=== PATIENT | female | born 1970 | race Caucasian/White ===

== ENCOUNTER → 2016-08-11 | Outpatient (CLI) | payer MEDICARE, MEDICAID ==
--- NOTE | 2016-08-11 10:53 | WOMENS IMAGING REPORT ---
EXAM DESCRIPTION: BILAT SCREENING MAMMO W/CAD COMPLETED DATE/TIME: 08/11/2016 10:43 am REASON FOR STUDY: Z12.31, ROUTINE SCREENING MAMMO Z12.31 ENCNTR SCREEN MAMMOGRAM FOR MALIGNANT NEOP LASM OF JOSE COMPARISON: None. TECHNIQUE: Standard craniocaudal and mediolateral oblique views of each breast recorded using [employer] l acquisition. LIMITATIONS: None. FINDINGS: No masses, calcifications or architectural distortion. No areas of suspicion. Read with the assistance of CAD. .[facility] - R2 Cenova Version 1.3 .[facility] - R2 Cenova Version 1.3 .[facility] - R2 Cenova Version 2.4 .[facility] [place] R2 Cenova Version 2.4 .[facility] - R2 Manager Material Version 9.2 IMPRESSION: NORMAL MAMMOGRAM. BIRADS 1. BREAST DENSITY: b. There are scattered areas of fibroglandular density. BIRAD: 1 NEGATIVE RECOMMENDATION: ROUTINE SCREENING COMMENT: The patient has been notified of the results by letter per MQSA requirements. Additional no tification policies are in place for contacting patient with suspicious or incomplete findings. Quality ID #[id number]: The [employer] recommends an annual screening mammogram for women aged 40 years or over. This facility utilizes a reminder system to ensure that all patients receive reminder letters, and/or direct phone calls for appointments. This includes reminders for routine scr eening mammograms, diagnostic mammograms, or other Breast Imaging Interventions when appropriate. Th is patient will be placed in the appropriate reminder system. The [employer] (ACR) has developed recommendations for screening MRI of the breast s in certain patient populations, to be used in conjunction with mammography. Breast MRI surveillanc e may be appropriate for women with more than 20% lifetime risk of developing breast cancer as deter mined by genetic testing, significant family history of the disease, or history of mantle radiation f or Hodgkins Disease. ACR Practice Guidelines 2008. TECHNICAL DOCUMENTATION: FINDING NUMBER: (1) ASSESSMENT: (1) JOB ID: [id number] [employer]- All Rights Reserved
== END ==
LOC: WI 09:10
PROVIDERS: ATTEND Internal Medicine
DX: Z12.31 Encounter for screening mammogram for malignant neoplasm of breast (principal)
CPT/HCPCS: 77067; G0202

== ENCOUNTER 2018-07-13 17:11 | Inpatient (IN) | payer MEDICARE, MEDICAID ==
[2018-07-13] MEDS ORDERED: DEXTROSE 50%-WATER SYRINGE 12.5 GM/25 ML DOSE IV PRN (18:30)
[2018-07-13] MEDS ORDERED: DEXTROSE 40% GEL 15 GM TUBE PO PRN (18:30)
[2018-07-13] MEDS ORDERED: GLUCAGON,HUMAN RECOMB 1 MG INJ IM PRN (18:30)
[2018-07-13] MEDS ORDERED: DEXTROSE 40% GEL 15 GM TUBE X 2 PO PRN (18:30)
[2018-07-13] MEDS ORDERED: DEXTROSE 50%-WATER SYRINGE 25 GM/50 ML DOSE IV PRN (18:30)
[2018-07-13] MEDS ORDERED: CYANOCOBALAMIN (VITAMIN B-12) INJ 1000 MCG/1 ML VIAL IM ONE (19:00)
[2018-07-13 19:32] LABS: ABSOLUTE BASOPHILS # (AUTO) 0.1 10^3/uL (0.0-0.2); ABSOLUTE EOSINOPHILS # (AUTO) 0.2 10^3/uL (0.0-0.6); ABSOLUTE LYMPHOCYTES (AUTO) 3.4 10^3/uL (0.5-4.7); ABSOLUTE MONOCYTES (AUTO) 0.6 10^3/uL (0.1-1.4); ABSOLUTE NEUT (AUTO) 4.9 10^3/uL (1.7-8.2); BASOPHILS % (AUTO) 0.6 % (0-2); EOSINOPHILS % (AUTO) 1.7 % (0-6); LYMPHOCYTES % (AUTO) 37.6 % (13-45); MEAN CORPUSCULAR HEMOGLOBIN 16.5 pg (27.0-33.4); MEAN CORPUSCULAR HGB CONC 27.2 g/dL (32.0-36.0); MONOCYTES % (AUTO) 6.2 % (3-13); PLATELET COUNT 292 10^3/uL (150-450); RED BLOOD COUNT 4.26 10^6/uL (3.72-5.28); RED CELL DISTRIBUTION WIDTH 19.8 % (11.5-14.0); SEGMENTED NEUTROPHILS % (AUTO) 53.9 % (42-78); TOTAL CELLS COUNTED % (AUTO) 100 %; WHITE BLOOD COUNT 9.1 10^3/uL (4.0-10.5)
[2018-07-13 19:42] LABS: ALANINE AMINOTRANSFERASE 12 U/L (9-52); ALBUMIN 3.7 g/dL (3.5-5.0); ALKALINE PHOSPHATASE 60 U/L (38-126); ANION GAP 10 (5-19); ASPARTATE AMINO TRANSFERASE 18 U/L (14-36); BILIRUBIN,DIRECT 0.1 mg/dL (0.0-0.4); BLOOD UREA NITROGEN 15 mg/dL (7-20); CALCIUM 9.2 mg/dL (8.4-10.2); CARBON DIOXIDE 30 mmol/L (22-30); CHLORIDE 101 mmol/L (98-107); IRON(TIBC) 20.4 ug/dL (37-170); POTASSIUM 4.8 mmol/L (3.6-5.0); SODIUM 140.7 mmol/L (137-145)
[2018-07-13 20:11] LABS: ANISOCYTOSIS 2+; HYPOCHROMASIA 2+; OVALOCYTES 2+; PLATELET COMMENT ADEQUATE; POLYCHROMASIA SLIGHT; TARGET CELLS 1+
[2018-07-13 20:16] LABS: MEAN CORPUSCULAR VOLUME 61 fl (80-97)
[2018-07-13] MEDS ORDERED: FAMOTIDINE 20 MG TABLET PO PRN (20:17)
[2018-07-13] MEDS ORDERED: FUROSEMIDE 40 MG TABLET PO PRN (20:17)
[2018-07-13 20:19] LABS: FERRITIN 3.77 ng/mL (6.2-137.0)
[2018-07-13 20:21] LABS: GLUCOSE 59 mg/dL (75-110); HEMOGLOBIN 7.1 g/dL (12.0-15.5)
--- NOTE | 2018-07-13 20:27 | PDOC H&P ---
History of Present Illness Admission Date/PCP: 07/13/18 17:11 AMARI MACHADO MD History of Present Illness: CIARA BRADY is a 48 year old female, She has history of type 2 diabetes mellitus she was admitted directly from the office today because of severe iron deficiency anemia, she had routine blood work when she came for follow-up evaluation she was found to be severely anemic, anemia work-up was done in the office it demonstrated severe iron deficiency anemia with B12 deficiency, She has a history of sleeve gastrectomy, she denies any passage of black tarry stool, she denies menorrhagia or excessive menstrual blood loss, she may need GI endoscopy including EGD and colonoscopy. She was admitted because she was symptomatic with shortness of breath severe fatigue ,lack of energy Past Medical History Cardiac Medical History: Reports: Hyperlipidema, Hypertension Pulmonary Medical History: Reports: Bronchitis, Pneumonia Endocrine Medical History: Reports: Diabetes Mellitus Type 2, Obesity Past Surgical History Past Surgical History: Reports: Cholecystectomy - 1999 Social History Smoking Status: Never Smoker Frequency of Alcohol Use: None Hx Recreational Drug Use: No Drugs: None Hx Prescription Drug Abuse: No Family History Parental Family History Reviewed: Yes Children Family History Reviewed: Yes Sibling(s) Family History Reviewed.: Yes Medication/Allergy Home Medications: Insulin Glargine,Hum.rec.anlog [Lantus] 80 unit SQ QAM 08/18/11 Losartan Potassium [Cozaar 100 mg Tablet] 100 mg PO DAILY 08/18/11 Aspirin [Ecotrin 81 mg EC Tablet] 81 mg PO DAILY 07/13/18 Calcium Carbonate/Vitamin D3 [Caltrate 600 + D Tablet] 1 tab PO DAILY 07/13/18 Citalopram Hydrobromide [Celexa 20 mg Tablet] 20 mg PO DAILY 07/13/18 Dapagliflozin Propanediol [Farxiga] 10 mg PO DAILY 07/13/18 Diltiazem HCl [Cardizem 60 mg Tablet] 60 mg PO Q12 07/13/18 Exenatide Microspheres [Bydureon Pen] 2 mg SQ WE@1000 MDD FILLED 03/09/18 FOR 28DAYSUPPLY 07/13/18 Famotidine [Pepcid 20 mg Tablet] 20 mg PO DAILYP PRN 07/13/18 Furosemide [Lasix 40 mg Tablet] 40 mg PO QAMP PRN 07/13/18 Gabapentin [Neurontin] 300 mg PO Q8 MDD FILLED 03/09/18 FOR 30DAYSUPPLY 07/13/18 Metformin HCl [Glucophage 500 mg Tablet] 1,000 mg PO BIDACBS 07/13/18 Multivit-Minerals/Folic Acid [Centrum Vitamints Chew Tab] 200 mcg PO DAILY 07/13/18 Allergies/Adverse Reactions: No Known Allergies Allergy (Unverified 08/18/11 20:12) Review of Systems Constitutional: ABSENT: chills, fever(s), headache(s), weight gain, weight loss Eyes: ABSENT: visual disturbances Ears: ABSENT: hearing changes Cardiovascular: PRESENT: chest pain, dyspnea on exertion Respiratory: ABSENT: cough, hemoptysis Gastrointestinal: ABSENT: abdominal pain, constipation, diarrhea, hematemesis, hematochezia, nausea, vomiting Genitourinary: ABSENT: dysuria, hematuria Musculoskeletal: ABSENT: joint swelling Integumentary: ABSENT: rash, wounds Neurological: ABSENT: abnormal gait, abnormal speech, confusion, dizziness, focal weakness, syncope Psychiatric: ABSENT: anxiety, depression, homidical ideation, suicidal ideation Endocrine: ABSENT: cold intolerance, heat intolerance, menstrual abnormalities, polydipsia, polyuria Hematologic/Lymphatic: ABSENT: easy bleeding, easy bruising, lymphadenopathy Physical Exam Vital Signs: Temp Pulse Resp BP Pulse Ox 97.5 F 93 16 134/51 H 98 07/13/18 19:42 07/13/18 19:42 07/13/18 19:42 07/13/18 19:42 07/13/18 19:42 Intake & Output 07/12/18 07/13/18 07/14/18 06:59 06:59 06:59 Weight 103 kg General appearance: PRESENT: no acute distress, well-developed, well-nourished Head exam: PRESENT: atraumatic, normocephalic Eye exam: PRESENT: conjunctiva pale Ear exam: PRESENT: normal external ear exam Mouth exam: PRESENT: moist, tongue midline Neck exam: PRESENT: full ROM Respiratory exam: PRESENT: clear to auscultation tawanna Cardiovascular exam: PRESENT: RRR, +S1, +S2 Vascular exam: PRESENT: normal capillary refill GI/Abdominal exam: PRESENT: normal bowel sounds, soft Rectal exam: PRESENT: deferred Neurological exam: PRESENT: alert, awake, oriented to person, oriented to place, oriented to time, oriented to situation, CN II-XII grossly intact Psychiatric exam: PRESENT: appropriate affect, normal mood Skin exam: PRESENT: dry, intact, warm Results Laboratory Results: 07/13/18 18:48 07/13/18 18:48 WBC 9.1 RBC 4.26 Hgb 7.1 L Hct 26.0 L MCV 61 L MCH 16.5 L MCHC 27.2 L RDW 19.8 H Plt Count 292 Seg Neutrophils % 53.9 Lymphocytes % 37.6 Monocytes % 6.2 Eosinophils % 1.7 Basophils % 0.6 Absolute Neutrophils 4.9 Absolute Lymphocytes 3.4 Absolute Monocytes 0.6 Absolute Eosinophils 0.2 Absolute Basophils 0.1 Assessment & Plan - Diagnosis (1) Iron deficiency anemia due to chronic blood loss Is this a current diagnosis for this admission?: Yes Plan: Transfuse packed red blood cells, Consult surgery for GI endoscopy (2) Vitamin B12 deficiency Is this a current diagnosis for this admission?: Yes (3) T2DM (type 2 diabetes mellitus) Qualifiers: Diabetes mellitus long term care pharmacist insulin use: with long term care pharmacist use Diabetes mellitus complication status: with neurologic complications Diabetes mellitus complication detail: with polyneuropathy Qualified Code(s): E11.42 - Type 2 diabetes mellitus with diabetic polyneuropathy; Z79.4 - USP (current) use of insulin Is this a current diagnosis for this admission?: Yes
[2018-07-13] MEDS: DILTIAZEM HCL 60 MG TABLET PO SCH (21:57)
[2018-07-13] MEDS: GABAPENTIN 300 MG CAPSULE PO SCH (21:57)
[2018-07-13] MEDS: INSULIN LISPRO 100 UNIT/ML 3 ML VIAL SUBCUT SCH (21:57)
[2018-07-13] MEDS ORDERED: (PENDING PHARMACY ID) (Gabapentin [Neurontin] 300 MG) PO SCH (22:00)
[2018-07-14] MEDS: GABAPENTIN 300 MG CAPSULE PO SCH ×3 (06:43→21:32)
[2018-07-14 07:30] LABS: HEMATOCRIT 30.6 % (36.0-47.0); MEAN CORPUSCULAR HEMOGLOBIN 19.1 pg (27.0-33.4); MEAN CORPUSCULAR HGB CONC 29.5 g/dL (32.0-36.0); PLATELET COUNT 262 10^3/uL (150-450); RED BLOOD COUNT 4.73 10^6/uL (3.72-5.28); RED CELL DISTRIBUTION WIDTH 24.7 % (11.5-14.0); WHITE BLOOD COUNT 8.1 10^3/uL (4.0-10.5)
[2018-07-14 07:54] LABS: MEAN CORPUSCULAR VOLUME 65 fl (80-97)
[2018-07-14] MEDS: INSULIN LISPRO 100 UNIT/ML 3 ML VIAL SUBCUT SCH ×4 (08:10→22:25)
[2018-07-14] MEDS: LOSARTAN POTASSIUM 50 MG TABLET PO SCH (09:33)
[2018-07-14] MEDS: ASPIRIN 81 MG TABLET, ENT COATED PO SCH (09:33)
[2018-07-14] MEDS: METFORMIN HCL 500 MG TABLET PO SCH ×2 (09:34→16:34)
[2018-07-14] MEDS: DILTIAZEM HCL 60 MG TABLET PO SCH ×2 (09:34→21:32)
[2018-07-14] MEDS: CITALOPRAM HYDROBROMIDE 20 MG TABLET PO SCH (09:34)
[2018-07-14] MEDS: MULTIVITAMINS W-IRON TABLET, CHEWABLE PO SCH (09:34)
[2018-07-14] MEDS: CALCIUM CARBONATE 250 MG/VITAMIN D3 125 UNIT TABLET PO SCH (09:34)
[2018-07-14] MEDS: INSULIN GLARGINE,HUM.REC.ANLOG 1,000 UNIT/10 ML VIAL SUBCUT SCH (09:35)
[2018-07-14] MEDS ORDERED: FOLIC ACID PO SCH (10:00)
[2018-07-14] MEDS ORDERED: (PENDING PHARMACY ID) (Dapagliflozin Propanediol [Farxiga] 10 MG) PO SCH (10:00)
[2018-07-14] MEDS ORDERED: MULTIVIT MINERALS PO SCH (10:00)
[2018-07-14] MEDS ORDERED: [UNRECOGNIZED DRUG - OTHER] PO SCH (10:00)
[2018-07-14] MEDS ORDERED: PEG 3350/NA SULF,BICARB,CL/KCL 4000 ML PO ONE (14:30)
--- NOTE | 2018-07-14 16:46 | PDOC PROGRESS REPORT ---
Subjective Progress Note for:: 07/14/18 Subjective:: Patient denied any significant abdominal pain. She admitted to daily use of Ibuprofen 400 mg for her neck pain. she denied tarry or black stool. No nausea or vomiting. No chest pain or difficulty with breathing. On going ingestion of Golytely in preparation for Colonoscopy. Reason For Visit: SEVERE ANEMIA, B12 DEFICIENCY Physical Exam Vital Signs: Temp Pulse Resp BP Pulse Ox 97.9 F 80 16 162/69 H 97 07/14/18 11:50 07/14/18 13:49 07/14/18 11:50 07/14/18 11:50 07/14/18 11:50 Intake & Output 07/13/18 07/14/18 07/15/18 06:59 06:59 06:59 Intake Total 1500 826 Balance 1500 826 Weight 105.2 kg General appearance: PRESENT: no acute distress, obese Head exam: PRESENT: atraumatic, normocephalic Eye exam: PRESENT: conjunctiva pink, EOMI, PERRLA. ABSENT: scleral icterus Ear exam: PRESENT: normal external ear exam Mouth exam: PRESENT: moist Respiratory exam: PRESENT: clear to auscultation tawanna Cardiovascular exam: PRESENT: RRR. ABSENT: diastolic murmur, rubs, systolic murmur Vascular exam: ABSENT: pallor GI/Abdominal exam: PRESENT: normal bowel sounds, soft. ABSENT: distended, guarding, mass, organolmegaly, rebound, tenderness Rectal exam: PRESENT: deferred Musculoskeletal exam: PRESENT: normal inspection Neurological exam: PRESENT: alert, awake, oriented to person, oriented to place, oriented to time, oriented to situation, CN II-XII grossly intact. ABSENT: motor sensory deficit Psychiatric exam: PRESENT: appropriate affect, normal mood. ABSENT: homicidal ideation, suicidal ideation Skin exam: PRESENT: dry, warm Results Laboratory Results: 07/14/18 06:59 07/13/18 18:48 07/13/18 07/13/18 07/13/18 18:48 18:48 18:48 WBC 9.1 RBC 4.26 Hgb 7.1 L Hct 26.0 L MCV 61 L MCH 16.5 L MCHC 27.2 L RDW 19.8 H Plt Count 292 Seg Neutrophils % 53.9 Lymphocytes % 37.6 Monocytes % 6.2 Eosinophils % 1.7 Basophils % 0.6 Absolute Neutrophils 4.9 Absolute Lymphocytes 3.4 Absolute Monocytes 0.6 Absolute Eosinophils 0.2 Absolute Basophils 0.1 Sodium 140.7 Potassium 4.8 Chloride 101 Carbon Dioxide 30 Anion Gap 10 BUN 15 Creatinine 0.75 Est GFR ( Amer) > 60 Est GFR (Non-Af Amer) > 60 Glucose 59 L Calcium 9.2 Iron 20.4 L TIBC 470 H % Saturation 4 Ferritin 3.77 L Total Bilirubin 1.0 AST 18 ALT 12 Alkaline Phosphatase 60 Total Protein 7.0 Albumin 3.7 Blood Type O POSITIVE Antibody Screen NEGATIVE 07/14/18 06:59 WBC 8.1 RBC 4.73 Hgb 9.0 L Hct 30.6 L MCV 65 L D MCH 19.1 L MCHC 29.5 L RDW 24.7 H Plt Count 262 Seg Neutrophils % Lymphocytes % Monocytes % Eosinophils % Basophils % Absolute Neutrophils Absolute Lymphocytes Absolute Monocytes Absolute Eosinophils Absolute Basophils Sodium Potassium Chloride Carbon Dioxide Anion Gap BUN Creatinine Est GFR ( Amer) Est GFR (Non-Af Amer) Glucose Calcium Iron TIBC % Saturation Ferritin Total Bilirubin AST ALT Alkaline Phosphatase Total Protein Albumin Blood Type Antibody Screen Assessment & Plan - Diagnosis (1) Iron deficiency anemia due to chronic blood loss Is this a current diagnosis for this admission?: Yes (2) T2DM (type 2 diabetes mellitus) Qualifiers: Diabetes mellitus moth exterminator insulin use: with moth exterminator use Diabetes mellitus complication status: with neurologic complications Diabetes mellitus complication detail: with polyneuropathy Qualified Code(s): E11.42 - Type 2 diabetes mellitus with diabetic polyneuropathy; Z79.4 - termite treater (current) use of insulin Is this a current diagnosis for this admission?: Yes (3) Vitamin B12 deficiency Is this a current diagnosis for this admission?: Yes - Time Time Spent with patient: 25-34 minutes Medications reviewed and adjusted accordingly: Yes Anticipated discharge: Home Within: Other - Inpatient Certification Based on my medical assessment, after consideration of the patient's comorbidities, presenting symptoms, or acuity I expect that the services needed warrant INPATIENT care.: Yes I certify that my determination is in accordance with my understanding of Medicare's requirements for reasonable and necessary INPATIENT services [42 CFR 412.3e].: Yes Medical Necessity: Significant Comorbidiites Make Outpatient Treatment Too Risky, Need Close Monitoring Due to Risk of Patient Decompensation, Need For Continuous Telemetry Monitoring, Risk of Complication if Not Cared For in Hospital, Risk of Diagnosis Which Will Require Inpatient Eval/Care/Monitoring Post Hospital Care: D/C Human Relations Teacher Documentation - Plan Summary Plan Summary: Continue current medication management and preparation for colonoscopy. She will need EGD as well as capsule endoscopy if no site of bleed or associated pathology is found on her colonoscopy.
[2018-07-15] MEDS: GABAPENTIN 300 MG CAPSULE PO SCH ×3 (05:11→21:26)
[2018-07-15] MEDS ORDERED: PEG 3350/NA SULF,BICARB,CL/KCL 4000 ML PO ONE (07:30)
[2018-07-15] MEDS ORDERED: NORMAL SALINE 1000 ML 1,000 ML IV PRN ×3 (07:30→18:15)
[2018-07-15] MEDS: INSULIN GLARGINE,HUM.REC.ANLOG 1,000 UNIT/10 ML VIAL SUBCUT SCH (08:36)
[2018-07-15] MEDS: METFORMIN HCL 500 MG TABLET PO SCH ×2 (08:36→17:27)
[2018-07-15] MEDS: INSULIN LISPRO 100 UNIT/ML 3 ML VIAL SUBCUT SCH ×4 (08:36→21:26)
[2018-07-15] MEDS: LOSARTAN POTASSIUM 50 MG TABLET PO SCH (09:00)
[2018-07-15] MEDS: CALCIUM CARBONATE 250 MG/VITAMIN D3 125 UNIT TABLET PO SCH (09:00)
[2018-07-15] MEDS: ASPIRIN 81 MG TABLET, ENT COATED PO SCH (09:01)
[2018-07-15] MEDS: MULTIVITAMINS W-IRON TABLET, CHEWABLE PO SCH (09:01)
[2018-07-15] MEDS: CITALOPRAM HYDROBROMIDE 20 MG TABLET PO SCH (09:01)
[2018-07-15] MEDS: DILTIAZEM HCL 60 MG TABLET PO SCH ×2 (09:01→21:26)
[2018-07-15] MEDS ORDERED: DEXTROSE 5%-NORMAL SALINE 1,000 ML IV PRN (09:14)
--- NOTE | 2018-07-15 09:23 | RADIOLOGY REPORT (SQ) ---
EXAM DESCRIPTION: ABDOMEN 2 VIEWS COMPLETED DATE/TIME: 07/15/2018 8:53 am REASON FOR STUDY: unsuccessful bowel prep COMPARISON: None. NUMBER OF VIEWS: Two views. TECHNIQUE: Supine and upright radiographic images of the abdomen acquired. LIMITATIONS: None. FINDINGS: FREE AIR: None. No abnormal gas collections. LUNG BASES: Clear. BOWEL GAS PATTERN: There are air-fluid levels throughout the colon and small bowel. Small amount of stool in the right lower quadrant. CALCIFICATIONS: No suspicious calcifications. SOFT TISSUES: No gross mass or suggestion of organomegaly. HARDWARE: Surgical clips in the upper abdomen post gastric bypass and cholecystectomy BONES: No acute fracture. No worrisome bone lesions. OTHER: No other significant finding. IMPRESSION: Air-fluid levels in small bowel and colon, abnormal but nonspecific. Surgical clips at the GE junction likely post gastric bypass TECHNICAL DOCUMENTATION: JOB ID: [id number] [employer]- All Rights Reserved Reading location - IP/workstation name: [email or web address]
--- NOTE | 2018-07-15 10:58 | PDOC PROGRESS REPORT ---
Subjective Progress Note for:: 07/15/18 Subjective:: Patient has had 6 L of PEG solution without a bowel movement. She reports a history of constipation. Reason For Visit: SEVERE ANEMIA, B12 DEFICIENCY Physical Exam Vital Signs: Temp Pulse Resp BP Pulse Ox 97.8 F 77 16 163/69 H 97 07/15/18 07:28 07/15/18 07:28 07/15/18 07:28 07/15/18 07:28 07/15/18 07:28 Intake & Output 07/14/18 07/15/18 07/16/18 06:59 06:59 06:59 Intake Total 1500 3416 Output Total 0 Balance 1500 3416 Weight 105.2 kg 108.6 kg General appearance: PRESENT: no acute distress Rectal exam: PRESENT: other - Patient examined left lateral decubitus position. Rectal exam performed. External hemorrhoids, collapsed. The rectal vault is full of very dry hard stool. Some stool was manually disimpacted Results Laboratory Results: 07/14/18 06:59 07/13/18 18:48 Impressions: Abdomen X-Ray 07/15/18 07:38 IMPRESSION: Air-fluid levels in small bowel and colon, abnormal but nonspecific. Surgical clips at the GE junction likely post gastric bypass Assessment & Plan - Diagnosis (1) Constipation Is this a current diagnosis for this admission?: Yes Plan: Impression: Severe constipation in the anal rectal vault preventing effective catharsis for upper and lower endoscopy today; abdominal film early today showed scattered air fluid levels throughout the colon, minimal air in the small bowel. Plan: 1. We will get patient ambulating now 2. If no results, will perform soapsuds enema. (2) Iron deficiency anemia due to chronic blood loss Is this a current diagnosis for this admission?: Yes
[2018-07-15] MEDS ORDERED: FENTANYL CITRATE INJ/PF 100 MCG/2 ML AMPUL ONE (12:28)
[2018-07-15] MEDS ORDERED: DIPHENHYDRAMINE HCL 50 MG/ML VIAL ONE (12:28)
[2018-07-15] MEDS ORDERED: ONDANSETRON HCL INJ/PF 4 MG/2 ML SDV ONE (12:28)
[2018-07-15] MEDS ORDERED: EPINEPHRINE INJ 1 MG/10 ML DISP.SYRIN ONE (12:29)
[2018-07-15] MEDS ORDERED: GLUCAGON,HUMAN RECOMB 1 MG INJ ONE (12:29)
[2018-07-15] MEDS ORDERED: NALOXONE HCL INJ/PF 0.4 MG/1 ML SDV ONE (12:29)
[2018-07-15] MEDS ORDERED: FLUMAZENIL INJ 0.5 MG/5 ML VIAL ONE (12:29)
[2018-07-15] MEDS: MIDAZOLAM 2 MG/2 ML INJ ONE ×3 (15:42→16:10)
--- NOTE | 2018-07-15 16:48 | Operative Report ---
Operative Report DATE OF SURGERY: 07/15/18 PREOPERATIVE DIAGNOSIS: 1. Blood loss anemia. 2. History of gastric sleeve b ariatric operation POSTOPERATIVE DIAGNOSIS: Same with intact sleeve; mild gastritis, chronic; external hemorrhoids; suboptimal bowel prep OPERATION: 1. Esophagogastroduodenoscopy. 2. Gastric sleeve mucosal biopsies. 3. Total colonoscopy to cecum. SURGEON: SABA STEWART ANESTHESIA: Moderate Sedation TISSUE REMOVED OR ALTERED: Mucosal biopsy of gastric sleeve COMPLICATIONS: None ESTIMATED BLOOD LOSS: Scant INTRAOPERATIVE FINDINGS: See below PROCEDURE: The patient was taken to the third floor to the endoscopy suite on the fifth floor where conscious sedation was induced. She is placed in a semirecumbent left lateral decubitus position. Surgical plan and surgical timeout were conducted. The flexible adult upper endoscope was advanced to the oropharynx, through the esophagus with the Z line at approximately 40 cm from the incisor. The scope was advanced through the stomach which was consistent with a restrictive procedure such as a gastric sleeve. The tubular stomach stomach was traversed and then the pylorus entered. The first and second portion of the duodenum were visualized and there were no scope was brought back to the pylorus, and the g astric sleeve examined carefully. There were changes consistent with chronic gastritis. A biopsy was performed to the mucosa and sent to pathology. There was no evidence of active bleeding. No evidence of tumor stricture or any other pathology. The scope was brought back through the esophagus and again no significant pathology other than mild distal gastritis identified. There is no explanation for GI bleeding. The scope was withdrawn for patient oropharynx. We now set up for colonoscopy The patient was placed in the left lateral decubitus position with knees to chest. A perianal examination was performed. There was no visible or palpable anorectal pathology. Sphincter tone was felt to be normal. There was an external, edematous hemorrhoid. The flexible adult colonoscope was advanced through the anal rectal canal, all the way to the cecum. Visualization of the cecum was achieved and the ileocecal valve, and transillumination of the anterior abdominal wall. This was a poor study because of the nearly 3 L of thick yellow stool aspirated from the entire colon; therefore real possibility is that small lesions may have been missed during the procedure. The colonoscope was withdrawn slowly and methodically checked and the mucosa carefully. There was no evidence of tumor, stricture, bleeding or polyp. There was no evidence of diverticuloses. The scope was slowly withdrawn through the anal rectal canal. Complete visualization of the rectum was achieved with photodocumentation. The scope was withdrawn to the patient's anus. The patient tolerated the proc edure well and was taken to the recovery area in stable condition. Surveillance colonoscopy 5 to 7 years; source of GI bleeding not identified on this upper and lower endoscopic procedure. Reconsult surgery if clinically indicated
--- NOTE | 2018-07-15 18:47 | PDOC PROGRESS REPORT ---
Subjective Progress Note for:: 07/15/18 Subjective:: Patient had EGD and colonoscopy evaluation earlier today that revealed sleeve edge gastritis without any other significant pathology to explain her anemia. No abdominal pain, nausea, or vomiting. No chest pain or difficulty with breathing. Reason For Visit: SEVERE ANEMIA, B12 DEFICIENCY Physical Exam Vital Signs: Temp Pulse Resp BP Pulse Ox 97.8 F 64 16 138/79 H 98 07/15/18 18:00 07/15/18 18:00 07/15/18 18:00 07/15/18 18:00 07/15/18 18:00 Intake & Output 07/14/18 07/15/18 07/16/18 06:59 06:59 06:59 Intake Total 1500 3416 5249 Output Total 0 Balance 1500 3416 5249 Weight 105.2 kg 108.6 kg Physical Exam: General appearance: PRESENT: no acute distress, obese Head exam: PRESENT: atraumatic, normocephalic Eye exam: PRESENT: conjunctiva pink, EOMI, PERRLA. ABSENT: pallor, scleral icterus Ear exam: PRESENT: normal external ear exam Mouth exam: PRESENT: moist Respiratory exam: PRESENT: clear to auscultation tawanna Cardiovascular exam: PRESENT: RRR. ABSENT: diastolic murmur, rubs, systolic murmur GI/Abdominal exam: PRESENT: normal bowel sounds, soft. ABSENT: distended, guarding, mass, organomegaly, rebound, tenderness Rectal exam: PRESENT: deferred Musculoskeletal exam: PRESENT: normal inspection Neurological exam: PRESENT: alert, awake, oriented to person, oriented to place, oriented to time, oriented to situation, CN II-XII grossly intact. ABSENT: motor sensory deficit Psychiatric exam: PRESENT: appropriate affect, normal mood. ABSENT: homicidal ideation, suicidal ideation Skin exam: PRESENT: dry, warm Results Laboratory Results: 07/14/18 06:59 07/13/18 18:48 Impressions: Abdomen X-Ray 07/15/18 07:38 IMPRESSION: Air-fluid levels in small bowel and colon, abnormal but nonspecific. Surgical clips at the GE junction likely post gastric bypass Assessment & Plan - Diagnosis (1) Iron deficiency anemia due to chronic blood loss Is this a current diagnosis for this admission?: Yes (2) T2DM (type 2 diabetes mellitus) Qualifiers: Diabetes mellitus longterm insulin use: with longterm use Diabetes mellitus complication status: with neurologic complications Diabetes mellitus complication detail: with polyneuropathy Qualified Code(s): E11.42 - Type 2 diabetes mellitus with diabetic polyneuropathy; Z79.4 - FPC (current) use of insulin Is this a current diagnosis for this admission?: Yes (3) Vitamin B12 deficiency Is this a current diagnosis for this admission?: Yes - Time Time Spent with patient: 25-34 minutes Medications reviewed and adjusted accordingly: Yes Anticipated discharge: Home Within: Other - Inpatient Certification Based on my medical assessment, after consideration of the patient's comorbidities, presenting symptoms, or acuity I expect that the services needed warrant INPATIENT care.: Yes I certify that my determination is in accordance with my understanding of Medicare's requirements for reasonable and necessary INPATIENT services [42 CFR 412.3e].: Yes Medical Necessity: Significant Comorbidiites Make Outpatient Treatment Too Risky, Need Close Monitoring Due to Risk of Patient Decompensation, Need For IV Fluids, Need For Continuous Telemetry Monitoring, Risk of Complication if Not Cared For in Hospital, Risk of Diagnosis Which Will Require Inpatient Eval/Care/Monitoring Post Hospital Care: D/C Sign Language Translator Documentation - Plan Summary Plan Summary: Restart on regular diet with diabetes and salt restrictions. Maintain on N/S due to ongoing diarrhea post colonoscopy preparation with 6L of Golytely administration. Obtain CBC and BMP in am. Start on Ferous sulfate 325 mg pobid with Ascorbic Acid 500 mg po bid. D/C Aspirin for awhile.
[2018-07-16] MEDS: GABAPENTIN 300 MG CAPSULE PO SCH ×2 (05:42→15:02)
--- NOTE | 2018-07-16 08:23 | CONSULTATION REPORT E ---
Consultation Report NAME: CIARA BRADY : 1970 AGE: 48Y DATE: 323 A TO: SABA STEWART M.D. FROM: AMARI MACHADO M.D. Requesting Physician CHIEF COMPLAINT: Severe anemia. HISTORY OF PRESENTING ILLNESS: The patient is 48-year-old white female, approximately 2 years status post gastric sleeve created in [place]. She lost approximately 80 pounds. She has had no complications since then. She presented to Dr. Machado's office yesterday for routine blood work and was found to be anemic with hemoglobin of 7.1. She denies hematemesis, dark tarry stools, bright red blood per rectum, or any history of anemia. She was admitted to the hospital where she underwent blood transfusion x2 units and hemoglobin came up to 9.0. Surgery was consulted for endoscopy. PAST MEDICAL HISTORY: 1. Obesity. 2. Acute anemia. 3. Hyperlipidemia. 4. Hypertension. 5. Type 2 diabetes. PAST SURGICAL HISTORY: Significant for cholecystectomy. SOCIAL HISTORY: The patient does not smoke. FAMILY HISTORY: Noncontributory. MEDICATIONS: Multiple and can be found in her history and physical document. ALLERGIES: None known. REVIEW OF SYSTEMS: CONSITUTIONAL: The patient denies. CARDIOVASCULAR: Patient reports dyspnea on exertion. GASTROINTESTINAL: Patient denies hematochezia, hematemesis, diarrhea, nausea, or vomiting. The remainder of the review of systems is unremarkable. PHYSICAL EXAMINATION: Patient examined on the third floor of [facility]. VITAL SIGNS: Are stable. She is not tachycardic. GENERAL: She is in no acute distress. EYES: Without icterus. NECK: No adenopathy. LUNGS: diminished in bases bilaterally. HEART: Without murmur or gallop. ABDOMEN: Soft. No peritoneal signs. No rigidity. EXTREMITIES: Upper and lower extremities without deformity. NEUROLOGIC: No deficits. PSYCHIATRIC: Alert and oriented x4. LABORATORY PROFILE: Blood sugar 139, electrolytes within normal limits. Iron 20.4. Total iron binding capacity is 470. Hemoglobin posterior transfusion 2 units 9.0. Platelets normal. IMPRESSION: Acute blood loss anemia, severe, now status post blood transfusion x2; history of gastric sleeve obesity procedure with successful weight loss; multiple comorbidities, stable. RECOMMENDATIONS: 1. Agree patient deserves an upper and lower endoscopy, possible biopsy, possible polypectomy; will set this up for tomorrow, fifth floor, conscious sedation in the endoscopy suite. 2. Will keep on clear liquids today, n.p.o. after midnight. We will order a bowel prep. DICTATING PHYSICIAN: SABA STEWART M.D. [id number] PHY#: [id number] ID: [id number] JOB#: [id number] ACCT: [id number] cc:SABA STEWART M.D. > MTDD
[2018-07-16] MEDS ORDERED: FERROUS SULFATE 325 MG TABLET PO SCH (09:00)
[2018-07-16] MEDS: DILTIAZEM HCL 60 MG TABLET PO SCH (09:56)
[2018-07-16] MEDS: LOSARTAN POTASSIUM 50 MG TABLET PO SCH (09:57)
[2018-07-16] MEDS: INSULIN LISPRO 100 UNIT/ML 3 ML VIAL SUBCUT SCH ×2 (09:57→14:53)
[2018-07-16] MEDS: CITALOPRAM HYDROBROMIDE 20 MG TABLET PO SCH (09:57)
[2018-07-16] MEDS: CALCIUM CARBONATE 250 MG/VITAMIN D3 125 UNIT TABLET PO SCH (09:57)
[2018-07-16] MEDS: METFORMIN HCL 500 MG TABLET PO SCH (09:57)
[2018-07-16] MEDS: INSULIN GLARGINE,HUM.REC.ANLOG 1,000 UNIT/10 ML VIAL SUBCUT SCH (09:57)
[2018-07-16] MEDS: MULTIVITAMINS W-IRON TABLET, CHEWABLE PO SCH (09:59)
[2018-07-16] MEDS ORDERED: ASCORBIC ACID 500 MG TABLET PO SCH (10:00)
[2018-07-16] MEDS ORDERED: POTASSI CL 20 MEQ/50 ML RIDER 0 MEQ/0 ML RTUPB IV ONE (12:12)
[2018-07-16 14:10] LABS: PATH REVIEW PATHOLOGIST REVIEWED
--- NOTE | 2018-07-16 14:44 | PDOC DISCHARGE SUMMARY ---
General - Admit/Disc Date/PCP Admission Date/Primary Care Provider: 07/13/18 17:11 AMARI MACHADO MD Discharge Date: 07/16/18 - Discharge Diagnosis (1) Iron deficiency anemia due to chronic blood loss Is this a current diagnosis for this admission?: Yes (2) Vitamin B12 deficiency Is this a current diagnosis for this admission?: Yes (3) T2DM (type 2 diabetes mellitus) Is this a current diagnosis for this admission?: Yes - Additional Information Resuscitation Status: Full Code Prescriptions: Ascorbic Acid [Vitamin C 500 mg Tablet] 500 mg PO BID #180 tablet Cyanocobalamin (Vitamin B-12) [B-12] 1,000 mcg SL DAILY #90 tab.subl Home Medications: Insulin Glargine,Hum.rec.anlog [Lantus] 80 unit SQ QAM 08/18/11 Losartan Potassium [Cozaar 100 mg Tablet] 100 mg PO DAILY 08/18/11 Calcium Carbonate/Vitamin D3 [Caltrate 600 Plus D3 Tablet] 1 tab PO DAILY 07/13/18 Citalopram Hydrobromide [Celexa 20 mg Tablet] 20 mg PO DAILY 07/13/18 Dapagliflozin Propanediol [Farxiga] 10 mg PO DAILY 07/13/18 Diltiazem HCl [Cardizem 60 mg Tablet] 60 mg PO Q12 07/13/18 Exenatide Microspheres [Bydureon Pen] 2 mg SQ WE@1000 MDD FILLED 03/09/18 FOR 28DAYSUPPLY 07/13/18 Famotidine [Pepcid 20 mg Tablet] 20 mg PO DAILYP PRN 07/13/18 Gabapentin [Neurontin] 300 mg PO Q8 MDD FILLED 03/09/18 FOR 30DAYSUPPLY 07/13/18 Metformin HCl [Glucophage 500 mg Tablet] 1,000 mg PO BIDACBS 07/13/18 Multivit-Minerals/Folic Acid [Centrum Vitamints Chew Tab] 200 mcg PO DAILY 07/13/18 Ascorbic Acid [Vitamin C 500 mg Tablet] 500 mg PO BID #180 tablet 07/16/18 Cyanocobalamin (Vitamin B-12) [B-12] 1,000 mcg SL DAILY #90 tab.subl 07/16/18 Ferrous Sulfate [Feosol 325 mg Tablet] 325 mg PO BIDPCBS tablet 07/16/18 History of Present Illness History of Present Illness: CIARA BRADY is a 48 year old female, She has history of type 2 diabetes mellitus she was admitted directly from the office today because of severe iron deficiency anemia, she had routine blood work when she came for follow-up evaluation she was found to be severely anemic, anemia work-up was done in the office it demonstrated severe iron deficiency anemia with B12 deficiency, She has a history of sleeve gastrectomy, she denies any passage of black tarry stool, she denies menorrhagia or excessive menstrual blood loss, she may need GI endoscopy including EGD and colonoscopy. She was admitted because she was symptomatic with shortness of breath severe fatigue ,lack of energy Hospital Course Hospital Course: Patient was admitted for the management of symptomatic severe iron deficiency anemia, on admission the hemoglobin was 7, she was transfused with 2 units of packed red blood cells. She was seen by general surgeon she underwent EGD and colonoscopy but procedure was normal there was no lesion to explain the anemia. She will require outpatient capsule endoscopy. Physical Exam Vital Signs: Temp Pulse Resp BP Pulse Ox 98.4 F 74 18 152/63 H 98 07/16/18 12:04 07/16/18 12:04 07/16/18 12:04 07/16/18 12:04 07/16/18 12:04 Intake & Output 07/15/18 07/16/18 07/17/18 06:59 06:59 06:59 Intake Total 3416 5549 680 Output Total 0 Balance 3416 5549 680 Weight 108.6 kg 108.7 kg General appearance: PRESENT: no acute distress, well-developed, well-nourished Head exam: PRESENT: atraumatic, normocephalic Eye exam: PRESENT: conjunctiva pink, EOMI, PERRLA Ear exam: PRESENT: normal external ear exam Mouth exam: PRESENT: moist, tongue midline Neck exam: PRESENT: full ROM Respiratory exam: PRESENT: clear to auscultation tawanna Cardiovascular exam: PRESENT: RRR, +S1, +S2 Pulses: PRESENT: normal dorsalis pedis pul, +2 pedal pulses bilateral Vascular exam: PRESENT: normal capillary refill GI/Abdominal exam: PRESENT: normal bowel sounds, soft Rectal exam: PRESENT: deferred Neurological exam: PRESENT: alert, awake, oriented to person, oriented to place, oriented to time, oriented to situation, CN II-XII grossly intact Psychiatric exam: PRESENT: appropriate affect, normal mood Skin exam: PRESENT: dry, intact, warm Results Laboratory Results: 07/14/18 06:59 07/13/18 18:48 Impressions: Abdomen X-Ray 07/15/18 07:38 IMPRESSION: Air-fluid levels in small bowel and colon, abnormal but nonspecific. Surgical clips at the GE junction likely post gastric bypass Qualifiers - * PATIENT BEING DISCHARGED WITH ANY OF THE FOLLOWING DIAGNOSIS: No Acute Heart Failure Is this a Heart Failure Patient?: No
[2018-07-16 15:14] VITALS: BP 150/62
[2018-07-18] MEDS ORDERED: (PENDING PHARMACY ID) (Exenatide Microspheres [Bydureon Pen] 2 MG) SQ SCH (10:00)
== END 2018-07-16 16:36 | disposition home or self-care (01) | DRG 812 ==
LOC: 3W 17:11
PROVIDERS: ADMIT Internal Medicine; ATTEND Internal Medicine
PROC: 30233N1 Transfusion of Nonautologous Red Blood Cells into Peripheral Vein, Percutaneous Approach (ICD-10-PCS; principal; 2018-07-13)
PROC: 30233N1 Transfusion of Nonautologous Red Blood Cells into Peripheral Vein, Percutaneous Approach (ICD-10-PCS; 2018-07-14)
PROC: 0DB68ZX Excision of Stomach, Via Natural or Artificial Opening Endoscopic, Diagnostic (ICD-10-PCS; 2018-07-15)
PROC: 0DJD8ZZ Inspection of Lower Intestinal Tract, Via Natural or Artificial Opening Endoscopic (ICD-10-PCS; 2018-07-15)
DX: D50.0 Iron deficiency anemia secondary to blood loss (chronic) (principal); E53.8 Deficiency of other specified B group vitamins; K29.50 Unspecified chronic gastritis without bleeding; K64.8 Other hemorrhoids; Z98.84 Bariatric surgery status; E78.5 Hyperlipidemia, unspecified; I10 Essential (primary) hypertension; E11.42 Type 2 diabetes mellitus with diabetic polyneuropathy; E66.9 Obesity, unspecified; K59.00 Constipation, unspecified; Z90.49 Acquired absence of other specified parts of digestive tract; Z79.4 Long term (current) use of insulin; Z79.82 Long term (current) use of aspirin; Z79.899 Other long term (current) drug therapy; Z79.84 Long term (current) use of oral hypoglycemic drugs
CPT/HCPCS: 36415; 36430; 43239; 45378; 74019; 80048; 80076; 82728; 82962; 83540; 83550; 85025; 85027; 86850; 86900; 86901; 86920; 88305; J0171; J1200; J1610; J1815; J2250; J2310; J2405; J3010; J3420; J3490; J7030; J7042; P9016

== ENCOUNTER 2019-04-29 08:26 | Inpatient (IN) | payer MEDICARE, MEDICAID ==
[2019-04-29 10:25] LABS: ABSOLUTE BASOPHILS # (AUTO) 0.1 10^3/uL (0.0-0.2); ABSOLUTE EOSINOPHILS # (AUTO) 0.1 10^3/uL (0.0-0.6); ABSOLUTE MONOCYTES (AUTO) 0.5 10^3/uL (0.1-1.4); ABSOLUTE NEUT (AUTO) 4.7 10^3/uL (1.7-8.2); BASOPHILS % (AUTO) 1.1 % (0-2); EOSINOPHILS % (AUTO) 1.2 % (0-6); HEMATOCRIT 20.7 % (36.0-47.0); LYMPHOCYTES % (AUTO) 35.4 % (13-45); MEAN CORPUSCULAR HEMOGLOBIN 17.5 pg (27.0-33.4); MEAN CORPUSCULAR HGB CONC 28.1 g/dL (32.0-36.0); MONOCYTES % (AUTO) 6.1 % (3-13); PLATELET COUNT 375 10^3/uL (150-450); RED BLOOD COUNT 3.34 10^6/uL (3.72-5.28); RED CELL DISTRIBUTION WIDTH 19.1 % (11.5-14.0); SEGMENTED NEUTROPHILS % (AUTO) 56.2 % (42-78); TOTAL CELLS COUNTED % (AUTO) 100 %; WHITE BLOOD COUNT 8.4 10^3/uL (4.0-10.5)
[2019-04-29 10:49] LABS: ALBUMIN 3.9 g/dL (3.5-5.0); ALKALINE PHOSPHATASE 53 U/L (38-126); ANION GAP 7 (5-19); ASPARTATE AMINO TRANSFERASE 21 U/L (14-36); BILIRUBIN,TOTAL 0.8 mg/dL (0.2-1.3); BLOOD UREA NITROGEN 17 mg/dL (7-20); CARBON DIOXIDE 28 mmol/L (22-30); CHLORIDE 104 mmol/L (98-107); GLUCOSE 74 mg/dL (75-110); POTASSIUM 4.4 mmol/L (3.6-5.0); TOTAL PROTEIN 6.9 g/dL (6.3-8.2)
[2019-04-29 10:53] LABS: MEAN CORPUSCULAR VOLUME 62 fl (80-97)
[2019-04-29 10:55] LABS: HEMOGLOBIN 5.8 g/dL (12.0-15.5)
[2019-04-29 10:58] LABS: ANISOCYTOSIS 2+; HYPOCHROMASIA 3+; POIKILOCYTOSIS 1+; POLYCHROMASIA 1+; TOXIC GRANULATION SLIGHT
[2019-04-29 10:59] LABS: OVALOCYTES 1+; PLATELET COMMENT ADEQUATE; PLATELET LARGE PRESENT; TEAR DROP CELLS 1+
[2019-04-29] MEDS ORDERED: NORMAL SALINE 250 ML IV PRN ×3 (11:06→18:24)
--- NOTE | 2019-04-29 11:09 | ER Document Report ---
ED General - General Chief Complaint: Abnormal Lab Results Stated Complaint: ABNORMAL LABS Time Seen by Provider: 04/29/19 10:06 Primary Care Provider: AMARI MACHADO MD [Primary Care Provider] - Follow up as needed TRAVEL OUTSIDE OF THE [place] IN LAST 30 DAYS: No - HPI Notes: Patient is a 49-year-old female who presents to the emergency department for evaluation. She had lab work done on by Dr. Machado. She was told her hemoglobin was low and was sent here to the emergency department for further evaluation. She does describe some weakness and some mild dyspnea on exertion. The patient has a known history of anemia. She has a history of gastric sleeve. She has had EGD and multiple attempts at colonoscopy over the last year. Unfortunately she has had issues with insufficient cleanout, has another colonoscopy scheduled for May. The patient at this point denies any pain. She admits she is had some chronic constipation issues, but denies any other acute complaints or concerns. - Related Data Allergies/Adverse Reactions: No Known Allergies Allergy (Verified 04/29/19 10:42) Home Medications: List reviewed, please see note Past Medical History - General Information source: Patient - Social History Smoking Status: Former Smoker Frequency of alcohol use: None Drug Abuse: None Family History: Reviewed & Not Pertinent Patient has suicidal ideation: No Patient has homicidal ideation: No - Past Medical History Cardiac Medical History: Reports: Hx Hypercholesterolemia, Hx Hypertension Pulmonary Medical History: Reports: Hx Bronchitis, Hx Pneumonia Neurological Medical History: Denies: Hx Seizures Endocrine Medical History: Reports: Hx Diabetes Mellitus Type 2 Renal/ Medical History: Denies: Hx Kidney Stones, Hx Ovarian Cysts, Hx Peritoneal Dialysis, Hx Pelvic Inflammatory Disease GI Medical History: Denies: Hx Irritable Bowel, Hx Liver Failure, Hx Pancreatitis, Hx Ulcer Psychiatric Medical History: Denies: Hx Schizophrenia Past Surgical History: Reports: Hx Abdominal Surgery - gastric sleeve, Hx Section, Hx Cholecystectomy - 1999, Hx Tonsillectomy - Immunizations Hx Pneumococcal Vaccination: 03/06/07 Review of Systems - Review of Systems Constitutional: See HPI Gastrointestinal: See HPI -: Yes All other systems reviewed and negative Physical Exam - Vital signs Vitals: Temp Pulse Resp BP Pulse Ox 98.4 F 92 14 156/57 H 97 04/29/19 08:31 04/29/19 08:31 04/29/19 08:31 04/29/19 08:31 04/29/19 08:31 - Notes Notes: Vital signs reviewed, please refer to chart. Head is normocephalic, atraumatic. Pupils equal round, reactive to light. Neck is supple without meningismus. Heart is regular rate and rhythm. Lungs are clear to auscultation bilaterally. Abdomen is soft, nontender, normoactive bowel sounds throughout. Extremities without cyanosis, clubbing. Posterior calves are nontender. Peripheral pulses are equal. Skin is warm and dry. Patient is awake, alert, neurological exam is nonfocal. Rectal exam was performed with KIA Martin at bedside. Patient does have large external hemorrhoids that are nonthrombosed, nontender. Stool is brown, firm, and heme-negative. No apparent rectal masses. Course - Re-evaluation Re-evalutation: 04/29/19 11:08 Patient presents emergency department for evaluation. She is found to have significantly low hemoglobin. She is typed and crossed for 2 units which were ordered to be transfused. Patient has not showing any signs of acute GI bleeding at this time. She is stable at this time. Will speak with her primary care provider regarding admission. 04/29/19 11:[address] Machado. He happily accepted the patient to the floor for admission. - Vital Signs Vital signs: Temp Pulse Resp BP Pulse Ox 98.4 F 92 14 156/57 H 97 04/29/19 08:31 04/29/19 08:31 04/29/19 08:31 04/29/19 08:31 04/29/19 08:31 - Laboratory Result Diagrams: 04/29/19 10:09 04/29/19 10:09 Laboratory results interpreted by me: 04/29/19 04/29/19 04/29/19 10:09 10:09 10:09 RBC 3.34 L Hgb 5.8 L Hct 20.7 L MCV 62 L MCH 17.5 L MCHC 28.1 L RDW 19.1 H Glucose 74 L Crossmatch See Detail Discharge - Discharge Clinical Impression: Iron deficiency anemia due to chronic blood loss Condition: Stable Disposition: ADMITTED INPATIENT Admitting Provider: Caity Unit Admitted: Medical Floor Referrals: AMARI MACHADO MD [Primary Care Provider] - Follow up as needed
[2019-04-29] MEDS ORDERED: RINGERS SOLUTION,LACTATED 1,000 ML IV PRN (18:19)
[2019-04-29] MEDS ORDERED: DEXTROSE 40% GEL 15 GM TUBE PO PRN ×2 (18:23)
[2019-04-29] MEDS ORDERED: DEXTROSE 50%-WATER 25 GM/50 ML DISP.SYRIN IV PRN ×2 (18:23)
[2019-04-29] MEDS ORDERED: GLUCAGON,HUMAN RECOMB 1 MG INJ IM PRN (18:23)
[2019-04-29 19:12] LABS: ABSOLUTE RETICS # 0.076 10^6/uL (0.028-0.122); RETICULOCYTE COUNT (AUTO) 1.88 % (0.66-2.85)
[2019-04-29 19:13] LABS: INTERNATIONAL RATION (INR) 1.07; PROTHROMBIN TIME 13.9 SEC (11.4-15.4)
[2019-04-29 19:29] LABS: ARTERIAL BLOOD BASE EXCESS 1.8 mmol/L; ARTERIAL BLOOD FIO2 21%; ARTERIAL BLOOD H2CO3 1.18 mmol/L (1.05-1.35); ARTERIAL BLOOD O2 SATURATION 97.4 % (94-98); ARTERIAL BLOOD PCO2 39.1 mmHg (35-45); ARTERIAL BLOOD PH 7.44 (7.35-7.45); ARTERIAL BLOOD TOTAL CO2 27.2 mmol/L (21-25)
[2019-04-29 19:30] LABS: CREATINE KINASE 56 U/L (30-135); IRON(TIBC) 91.7 ug/dL (37-170); PHOSPHORUS 3.7 mg/dL (2.5-4.5)
[2019-04-29 19:45] LABS: TROPONIN I < 0.012 ng/mL
[2019-04-29 19:58] LABS: THYROID STIMULATING HORMONE 2.27 uIU/mL (0.47-4.68)
[2019-04-29 20:05] LABS: FERRITIN 4.32 ng/mL (6.2-137.0)
[2019-04-29] MEDS ORDERED: FUROSEMIDE 40 MG TABLET PO PRN (22:30)
--- NOTE | 2019-04-29 22:30 | PDOC H&P ---
History of Present Illness Admission Date/PCP: 04/29/19 12:23 AMARI MACHADO MD History of Present Illness: CIARA BRADY is a 49 year old female,Patient is admitted for the management of symptomatic severe iron deficiency anemia. She was in the office when she came for routine follow-up evaluation, she complain of fatigue, blood work was done, over the weekend the result demonstrated hemoglobin of 5, she was called from home by Dr. Delong who was on-call for the weekend.She had similar presentation last year when she was extensively evaluated with endoscopies unfortunately the colonoscopy was a poor prep, the colon was not well visualized, she was referred to outpatient to follow with Dr. Meron DENISE. Subsequent colonoscopy done outpatient was again poor prep, she was supposed to have a repeat colonoscopy and also capsule endoscopy but patient was here to get a family member to travel from the GI office after the procedure. She will be transfused with packed red blood cells, she is not actively bleeding, I spoke with Dr. Chance the GI physician he suggested that patient could be discharged home since she is not really bleeding, she will follow with him for outpatient endoscopy. Past Medical History Cardiac Medical History: Reports: Hyperlipidema, Hypertension Pulmonary Medical History: Reports: Bronchitis, Pneumonia Neurological Medical History: Denies: Seizures Endocrine Medical History: Reports: Diabetes Mellitus Type 2 Psychiatric Medical History: Reports: Depression Hematology: Reports: Anemia Past Surgical History Past Surgical History: Reports: Section, Cholecystectomy - 1999, Tonsillectomy Social History Smoking Status: Former Smoker Frequency of Alcohol Use: None Hx Recreational Drug Use: No Drugs: None Hx Prescription Drug Abuse: No Family History Family History: Reviewed & Not Pertinent Parental Family History Reviewed: Yes Children Family History Reviewed: Yes Sibling(s) Family History Reviewed.: Yes Medication/Allergy Home Medications: Won/D3/Mag11/Zinc/Post Secondary Professional/Chris/Bor [Caltrate 600+D Plus Tablet] 1 tab PO DAILY 04/29/19 Citalopram Hydrobromide [Celexa] 1 tab PO DAILY 04/29/19 Dapagliflozin Propanediol [Farxiga] 10 mg PO DAILY 04/29/19 Diltiazem HCl [Cardizem 60 mg Tablet] 1 tab PO Q12 04/29/19 Exenatide Microspheres [Bydureon Pen] 2 mg SQ MO@1000 04/29/19 Furosemide [Lasix 40 mg Tablet] 40 mg PO DAILYP PRN 04/29/19 Insulin Glargine,Hum.rec.anlog [Lantus Insulin 100 Unit/1 ml 10 ml] 50 unit SUBCUT DAILY 04/29/19 Losartan Potassium 100 mg PO DAILY 04/29/19 Metformin HCl [Glucophage] 1,000 mg PO Q12 04/29/19 Multivit-Minerals/Folic Acid [Centrum Vitamints Chew Tab] 200 mcg PO DAILY 04/29/19 Allergies/Adverse Reactions: No Known Allergies Allergy (Verified 04/29/19 10:42) Review of Systems Constitutional: ABSENT: chills, fever(s), headache(s), weight gain, weight loss Eyes: ABSENT: visual disturbances Ears: ABSENT: hearing changes Cardiovascular: PRESENT: dyspnea on exertion Respiratory: ABSENT: cough, hemoptysis Gastrointestinal: ABSENT: abdominal pain, constipation, diarrhea, hematemesis, hematochezia, nausea, vomiting Genitourinary: ABSENT: dysuria, hematuria Musculoskeletal: ABSENT: joint swelling Integumentary: ABSENT: rash, wounds Neurological: ABSENT: abnormal gait, abnormal speech, confusion, dizziness, focal weakness, syncope Psychiatric: ABSENT: anxiety, depression, homidical ideation, suicidal ideation Endocrine: ABSENT: cold intolerance, heat intolerance, menstrual abnormalities, polydipsia, polyuria Hematologic/Lymphatic: ABSENT: easy bleeding, easy bruising, lymphadenopathy Physical Exam Vital Signs: Temp Pulse Resp BP Pulse Ox 98.5 F 83 17 169/63 H 99 04/29/19 19:42 04/29/19 19:42 04/29/19 19:42 04/29/19 19:42 04/29/19 19:42 Intake & Output 04/28/19 04/29/19 04/30/19 06:59 06:59 06:59 Intake Total 600 Balance 600 Weight 104.5 kg General appearance: PRESENT: no acute distress, well-developed, well-nourished Head exam: PRESENT: atraumatic, normocephalic Eye exam: PRESENT: conjunctiva pink, EOMI, PERRLA Ear exam: PRESENT: normal external ear exam Mouth exam: PRESENT: moist, tongue midline Neck exam: PRESENT: full ROM Respiratory exam: PRESENT: clear to auscultation tawanna Cardiovascular exam: PRESENT: RRR, +S1, +S2 Pulses: PRESENT: normal dorsalis pedis pul, +2 pedal pulses bilateral Vascular exam: PRESENT: normal capillary refill GI/Abdominal exam: PRESENT: normal bowel sounds, soft Rectal exam: PRESENT: deferred Neurological exam: PRESENT: alert, awake, oriented to person, oriented to place, oriented to time, oriented to situation, CN II-XII grossly intact Psychiatric exam: PRESENT: appropriate affect, normal mood Skin exam: PRESENT: dry, intact, warm Results Laboratory Results: 04/29/19 10:09 04/29/19 10:09 04/29/19 04/29/19 04/29/19 10:09 10:09 10:09 WBC 8.4 RBC 3.34 L Hgb 5.8 L Hct 20.7 L MCV 62 L MCH 17.5 L MCHC 28.1 L RDW 19.1 H Plt Count 375 Seg Neutrophils % 56.2 Retic Count (auto) Carbonic Acid HCO3/H2CO3 Ratio ABG pH ABG pCO2 ABG pO2 ABG HCO3 ABG O2 Saturation ABG Base Excess FiO2 Sodium 138.6 Potassium 4.4 Chloride 104 Carbon Dioxide 28 Anion Gap 7 BUN 17 Creatinine 0.74 Est GFR ( Amer) > 60 Glucose 74 L Calcium 9.0 Phosphorus Magnesium Iron TIBC % Saturation Ferritin Total Bilirubin 0.8 AST 21 Alkaline Phosphatase 53 Ammonia Total Protein 6.9 Albumin 3.9 Amylase Lipase Vitamin B12 Folate TSH Free T4 Blood Type O POSITIVE Antibody Screen NEGATIVE 04/29/19 04/29/19 04/29/19 18:54 18:54 18:54 WBC RBC Hgb Hct MCV MCH MCHC RDW Plt Count Seg Neutrophils % Retic Count (auto) Carbonic Acid HCO3/H2CO3 Ratio ABG pH ABG pCO2 ABG pO2 ABG HCO3 ABG O2 Saturation ABG Base Excess FiO2 Sodium Potassium Chloride Carbon Dioxide Anion Gap BUN Creatinine Est GFR ( Amer) Glucose Calcium Phosphorus 3.7 Magnesium 2.1 Iron TIBC % Saturation Ferritin Total Bilirubin AST Alkaline Phosphatase Ammonia < 8.7 L Total Protein Albumin Amylase 38 Lipase 38.3 Vitamin B12 Folate TSH 2.27 Free T4 1.00 Blood Type Antibody Screen 04/29/19 04/29/19 04/29/19 18:54 18:54 19:20 WBC RBC Hgb Hct MCV MCH MCHC RDW Plt Count Seg Neutrophils % Retic Count (auto) 1.88 Carbonic Acid 1.18 HCO3/H2CO3 Ratio 22:1 ABG pH 7.44 ABG pCO2 39.1 ABG pO2 93.0 ABG HCO3 26.0 H ABG O2 Saturation 97.4 ABG Base Excess 1.8 FiO2 21% Sodium Potassium Chloride Carbon Dioxide Anion Gap BUN Creatinine Est GFR ( Amer) Glucose Calcium Phosphorus Magnesium Iron 91.7 TIBC 436 % Saturation 21 Ferritin 4.32 L Total Bilirubin AST Alkaline Phosphatase Ammonia Total Protein Albumin Amylase Lipase Vitamin B12 357.0 Folate 16.00 TSH Free T4 Blood Type Antibody Screen 04/29/19 04/29/19 04/29/19 18:54 18:54 18:54 Creatine Kinase 56 CK-MB (CK-2) 1.00 Troponin I < 0.012 NT-Pro-B Natriuret Pep 197 H Assessment & Plan - Diagnosis (1) Iron deficiency anemia due to chronic blood loss Is this a current diagnosis for this admission?: Yes Plan: Patient to be transfused with red blood cells (2) T2DM (type 2 diabetes mellitus) Qualifiers: Diabetes mellitus banquet chef insulin use: with shelter use Diabetes mellitus complication status: with neurologic complications Diabetes mellitus complication detail: with polyneuropathy Qualified Code(s): E11.42 - Type 2 diabetes mellitus with diabetic polyneuropathy; Z79.4 - halfway (current) use of insulin Is this a current diagnosis for this admission?: Yes
[2019-04-29] MEDS: INSULIN REG, HUMAN 100 UNIT/ML 3 ML VIAL (PYX) SUBCUT SCH (22:31)
[2019-04-29] MEDS ORDERED: (PENDING PHARMACY ID) (Dapagliflozin Propanediol [Farxiga] 10 MG) PO SCH (22:45)
[2019-04-29] MEDS ORDERED: INSULIN GLARGINE,HUM.REC.ANLOG 1,000 UNIT/10 ML VIAL (PYX) SUBCUT ONE (23:37)
[2019-04-29] MEDS: DILTIAZEM HCL 60 MG TABLET PO SCH (23:39)
[2019-04-29] MEDS: CITALOPRAM HYDROBROMIDE 20 MG TABLET PO SCH (23:39)
[2019-04-29] MEDS: INSULIN GLARGINE,HUM.REC.ANLOG 1,000 UNIT/10 ML VIAL SUBCUT SCH (23:40)
[2019-04-30 01:08] LABS: URINE AMPHETAMINES SCREEN NEGATIVE; URINE BARBITURATES SCREEN NEGATIVE; URINE BENZODIAZEPINES SCREEN NEGATIVE; URINE COCAINE SCREEN NEGATIVE; URINE MARIJUANA (THC) SCREEN NEGATIVE; URINE METHADONE SCREEN NEGATIVE; URINE PHENCYCLIDINE SCREEN NEGATIVE
[2019-04-30 01:11] LABS: APPEARANCE,URINE SLIGHTLY-CLOUDY; BILIRUBIN,URINE NEGATIVE (NEGATIVE); COLOR,URINE YELLOW; GLUCOSE, URINE >=500 mg/dL (NEGATIVE); KETONES,URINE NEGATIVE (NEGATIVE); LEUKOCYTE ESTERASE,URINE SMALL (NEGATIVE); NITRITE,URINE NEGATIVE (NEGATIVE); PROTEIN,URINE 30 mg/dL (NEGATIVE); UROBILINOGEN,URINE NEGATIVE mg/dL (<2.0)
[2019-04-30 01:36] LABS: CREATINE KINASE MB 1.05 ng/mL (<4.55)
[2019-04-30 01:44] LABS: TROPONIN I < 0.012 ng/mL
[2019-04-30 07:53] LABS: ALBUMIN 3.6 g/dL (3.5-5.0); ALKALINE PHOSPHATASE 55 U/L (38-126); ANION GAP 7 (5-19); ASPARTATE AMINO TRANSFERASE 24 U/L (14-36); BILIRUBIN,DIRECT 0.1 mg/dL (0.0-0.4); BILIRUBIN,TOTAL 2.4 mg/dL (0.2-1.3); BLOOD UREA NITROGEN 15 mg/dL (7-20); CALCIUM 8.7 mg/dL (8.4-10.2); CARBON DIOXIDE 28 mmol/L (22-30); CHLORIDE 105 mmol/L (98-107); CHOLESTEROL 111.16 mg/dL (0-200); CREATINE KINASE 64 U/L (30-135); POTASSIUM 4.6 mmol/L (3.6-5.0); TOTAL PROTEIN 6.8 g/dL (6.3-8.2); TRIGLYCERIDES 79 mg/dL (<150)
[2019-04-30 08:05] LABS: DIRECT LDL 62 mg/dL (<100)
[2019-04-30 08:11] LABS: GLUCOSE 50 mg/dL (75-110)
[2019-04-30 08:19] LABS: CREATINE KINASE MB 1.19 ng/mL (<4.55)
[2019-04-30 08:23] LABS: TROPONIN I < 0.012 ng/mL
[2019-04-30] MEDS: INSULIN REG, HUMAN 100 UNIT/ML 3 ML VIAL (PYX) SUBCUT SCH ×4 (08:28→17:49)
[2019-04-30 09:05] LABS: ABSOLUTE BASOPHILS # (AUTO) 0.1 10^3/uL (0.0-0.2); ABSOLUTE EOSINOPHILS # (AUTO) 0.1 10^3/uL (0.0-0.6); ABSOLUTE LYMPHOCYTES (AUTO) 2.9 10^3/uL (0.5-4.7); ABSOLUTE MONOCYTES (AUTO) 0.6 10^3/uL (0.1-1.4); ABSOLUTE NEUT (AUTO) 4.8 10^3/uL (1.7-8.2); BASOPHILS % (AUTO) 0.8 % (0-2); EOSINOPHILS % (AUTO) 1.6 % (0-6); HEMATOCRIT 32.4 % (36.0-47.0); LYMPHOCYTES % (AUTO) 34.4 % (13-45); MEAN CORPUSCULAR HEMOGLOBIN 22.1 pg (27.0-33.4); MEAN CORPUSCULAR HGB CONC 31.5 g/dL (32.0-36.0); MONOCYTES % (AUTO) 6.7 % (3-13); PLATELET COUNT 286 10^3/uL (150-450); RED BLOOD COUNT 4.63 10^6/uL (3.72-5.28); RED CELL DISTRIBUTION WIDTH 25.2 % (11.5-14.0); SEGMENTED NEUTROPHILS % (AUTO) 56.5 % (42-78); TOTAL CELLS COUNTED % (AUTO) 100 %; WHITE BLOOD COUNT 8.5 10^3/uL (4.0-10.5)
[2019-04-30 09:18] LABS: HEMOGLOBIN 10.2 g/dL (12.0-15.5)
[2019-04-30 09:19] LABS: MEAN CORPUSCULAR VOLUME 70 fl (80-97)
[2019-04-30] MEDS: DILTIAZEM HCL 60 MG TABLET PO SCH (09:22)
[2019-04-30] MEDS: CITALOPRAM HYDROBROMIDE 20 MG TABLET PO SCH (09:22)
[2019-04-30 09:30] LABS: ANISOCYTOSIS 3+; HYPOCHROMASIA 1+; OVALOCYTES 1+; POIKILOCYTOSIS 1+; POLYCHROMASIA SLIGHT
[2019-04-30 09:31] LABS: TEAR DROP CELLS SLIGHT
[2019-04-30 09:32] LABS: PLATELET COMMENT ADEQUATE
[2019-04-30] MEDS ORDERED: CALCIUM CARBONATE 600 MG/VITAMIN D3 400 UNIT TABLET PO SCH (10:00)
[2019-04-30] MEDS ORDERED: METFORMIN HCL 500 MG TABLET PO SCH (10:00)
[2019-04-30] MEDS ORDERED: MULTIVITAMIN TABLET PO SCH (10:00)
[2019-04-30] MEDS ORDERED: LOSARTAN POTASSIUM 50 MG TABLET PO SCH (10:00)
[2019-04-30 11:02] LABS: PATH REVIEW PATHOLOGIST REVIEWED
[2019-04-30] MEDS: INSULIN GLARGINE,HUM.REC.ANLOG 1,000 UNIT/10 ML VIAL SUBCUT SCH (13:36)
[2019-04-30 17:16] VITALS: BP 155/53
--- NOTE | 2019-04-30 20:12 | PDOC DISCHARGE SUMMARY ---
Impression - Admit/DC Date/PCP Admission Date/Primary Care Provider: 04/29/19 12:23 AMARI MACHADO MD Discharge Date: 04/30/19 - Discharge Diagnosis (1) Iron deficiency anemia due to chronic blood loss Is this a current diagnosis for this admission?: Yes (2) T2DM (type 2 diabetes mellitus) Is this a current diagnosis for this admission?: Yes - Additional Information Discharge Diet: As Tolerated Discharge Activity: Activity As Tolerated Referrals: AMARI MACHADO MD [Primary Care Provider] - Follow up as needed Home Medications: RX: Won/D3/Mag11/Zinc/[employer]/Chris/Bor [Caltrate 600+D Plus Tablet] 1 tab PO DAILY 04/29/19 RX: Citalopram Hydrobromide [Celexa] 1 tab PO DAILY 04/29/19 RX: Dapagliflozin Propanediol [Farxiga] 10 mg PO DAILY 04/29/19 RX: Diltiazem HCl [Cardizem 60 mg Tablet] 1 tab PO Q12 04/29/19 RX: Exenatide Microspheres [Bydureon Pen] 2 mg SQ MO@1000 04/29/19 RX: Furosemide [Lasix 40 mg Tablet] 40 mg PO DAILYP PRN 04/29/19 RX: Insulin Glargine,Hum.rec.anlog [Lantus Insulin 100 Unit/1 ml 10 ml] 50 unit SUBCUT DAILY 04/29/19 RX: Losartan Potassium 100 mg PO DAILY 04/29/19 RX: Metformin HCl [Glucophage] 1,000 mg PO Q12 04/29/19 RX: Multivit-Minerals/Folic Acid [Centrum Vitamints Chew Tab] 200 mcg PO DAILY 04/29/19 History of Present Illiness History of Present Illness: CIARA BRADY is a 49 year old female,Patient is admitted for the management of symptomatic severe iron deficiency anemia. She was in the office when she came for routine follow-up evaluation, she complain of fatigue, blood work was done, over the weekend the result demonstrated hemoglobin of 5, she was called from home by Dr. Delong who was on-call for the weekend.She had similar presentation last year when she was extensively evaluated with endoscopies unfortunately the colonoscopy was a poor prep, the colon was not well visualized, she was referred to outpatient to follow with Dr. Eweje GI. Subsequent colonoscopy done outpatient was again poor prep, she was supposed to have a repeat colonoscopy and also capsule endoscopy but patient was here to get a family member to travel from the GI office after the procedure. She will be transfused with packed red blood cells, she is not actively bleeding, I spoke with Dr. Chance the GI physician he suggested that patient could be discharged home since she is not really bleeding, she will follow with him for outpatient endoscopy. Hospital Course Hospital Course: Patient was admitted yesterday for evaluation and management of severe iron deficiency anemia, she was transfused with red blood cells, posttransfusion hemoglobin is 10. Patient is not actively bleeding, she will be discharged home today, I discussed her condition with Dr. Chance, customs director, he recommended that patient could be discharged home since she is not actively bleeding will be scheduled for outpatient colonoscopy and probably capsule endoscopy. She had a similar presentation last year when she presented with severe iron deficiency anemia she was evaluated with endoscopy both EGD and colonoscopy. The colonoscopy was a poor study because it was a poor prep, she was supposed to have outpatient colonoscopy but unfortunately that also was a poor prep she was rescheduled for colonoscopy but she could not keep the appointment for personal reasons. Patient is stable she is glad to go home not presently symptomatic Physical Exam Vital Signs: Temp Pulse Resp BP Pulse Ox 97.9 F 81 14 155/53 H 98 04/30/19 19:13 04/30/19 19:13 04/30/19 19:13 04/30/19 19:13 04/30/19 19:13 Intake & Output 04/29/19 04/30/19 05/01/19 06:59 06:59 06:59 Intake Total 1999 260 Output Total 4 Balance 1995 260 Weight 104.6 kg General appearance: PRESENT: no acute distress Eye exam: PRESENT: PERRLA Respiratory exam: PRESENT: clear to auscultation tawanna Cardiovascular exam: PRESENT: +S1, +S2 GI/Abdominal exam: PRESENT: soft Neurological exam: PRESENT: alert Results Laboratory Results: WBC 8.5 10^3/uL (4.0-10.5) 04/30/19 07:17 RBC 4.63 10^6/uL (3.72-5.28) 04/30/19 07:17 Hgb 10.2 g/dL (12.0-15.5) L D 04/30/19 07:17 Hct 32.4 % (36.0-47.0) L 04/30/19 07:17 MCV 70 fl (80-97) L D 04/30/19 07:17 MCH 22.1 pg (27.0-33.4) L 04/30/19 07:17 MCHC 31.5 g/dL (32.0-36.0) L 04/30/19 07:17 RDW 25.2 % (11.5-14.0) H 04/30/19 07:17 Plt Count 286 10^3/uL (150-450) 04/30/19 07:17 Lymph % (Auto) 34.4 % (13-45) 04/30/19 07:17 [place] % (Auto) 6.7 % (3-13) 04/30/19 07:17 Eos % (Auto) 1.6 % (0-6) 04/30/19 07:17 Baso % (Auto) 0.8 % (0-2) 04/30/19 07:17 Reticulocyte # 0.076 10^6/uL (0.028-0.122) 04/29/19 18:54 Absolute Neuts (auto) 4.8 10^3/uL (1.7-8.2) 04/30/19 07:17 Absolute Lymphs (auto) 2.9 10^3/uL (0.5-4.7) 04/30/19 07:17 Absolute Monos (auto) 0.6 10^3/uL (0.1-1.4) 04/30/19 07:17 Absolute Eos (auto) 0.1 10^3/uL (0.0-0.6) 04/30/19 07:17 Absolute Basos (auto) 0.1 10^3/uL (0.0-0.2) 04/30/19 07:17 Seg Neutrophils % 56.5 % (42-78) 04/30/19 07:17 Toxic Granulation SLIGHT 04/29/19 10:09 Large Platelets PRESENT 04/29/19 10:09 Platelet Comment ADEQUATE 04/30/19 07:17 Polychromasia SLIGHT 04/30/19 07:17 Hypochromasia 1+ 04/30/19 07:17 Poikilocytosis 1+ 04/30/19 07:17 Basophilic Stippling PRESENT 04/29/19 10:09 Anisocytosis 3+ 04/30/19 07:17 Microcytosis 2+ 04/30/19 07:17 Tear Drop Cells SLIGHT 04/30/19 07:17 Ovalocytes 1+ 04/30/19 07:17 Retic Count (auto) 1.88 % (0.66-2.85) 04/29/19 18:54 PT 13.9 SEC (11.4-15.4) 04/29/19 18:54 INR 1.07 04/29/19 18:54 Carbonic Acid 1.18 mmol/L (1.05-1.35) 04/29/19 19:20 HCO3/H2CO3 Ratio 22:1 04/29/19 19:20 ABG pH 7.44 (7.35-7.45) 04/29/19 19:20 ABG pCO2 39.1 mmHg (35-45) 04/29/19 19:20 ABG pO2 93.0 mmHg (80-100) 04/29/19 19:20 ABG HCO3 26.0 mmol/L (20-24) H 04/29/19 19:20 ABG Total CO2 27.2 mmol/L (21-25) H 04/29/19 19:20 ABG O2 Saturation 97.4 % (94-98) 04/29/19 19:20 ABG Base Excess 1.8 mmol/L 04/29/19 19:20 FiO2 21% 04/29/19 19:20 Sodium 140.4 mmol/L (137-145) 04/30/19 07:17 Potassium 4.6 mmol/L (3.6-5.0) 04/30/19 07:17 Chloride 105 mmol/L (98-107) 04/30/19 07:17 Carbon Dioxide 28 mmol/L (22-30) 04/30/19 07:17 Anion Gap 7 (5-19) 04/30/19 07:17 BUN 15 mg/dL (7-20) 04/30/19 07:17 Creatinine 0.76 mg/dL (0.52-1.25) 04/30/19 07:17 Est GFR ( Amer) > 60 (>60) 04/30/19 07:17 Est GFR (MDRD) Non-Af > 60 (>60) 04/30/19 07:17 Glucose 50 mg/dL (75-110) L 04/30/19 07:17 POC Glucose 97 mg/dL (70-110) 04/30/19 17:33 Hemoglobin A1c % 6.7 % (4.7-6.0) H 04/30/19 07:17 Calcium 8.7 mg/dL (8.4-10.2) 04/30/19 07:17 Phosphorus 3.7 mg/dL (2.5-4.5) 04/29/19 18:54 Magnesium 2.1 mg/dL (1.6-2.3) 04/29/19 18:54 Iron 91.7 ug/dL (37-170) 04/29/19 18:54 TIBC 436 ug/dL (250-450) 04/29/19 18:54 % Saturation 21 % 04/29/19 18:54 Ferritin 4.32 ng/mL (6.2-137.0) L 04/29/19 18:54 Total Bilirubin 2.4 mg/dL (0.2-1.3) H 04/30/19 07:17 Direct Bilirubin 0.1 mg/dL (0.0-0.4) 04/30/19 07:17 Neonat Total Bilirubin Not Reportable 04/30/19 07:17 Neonat Direct Bilirubin Not Reportable 04/30/19 07:17 Neonat Indirect Bili Not Reportable 04/30/19 07:17 AST 24 U/L (14-36) 04/30/19 07:17 ALT 13 U/L (<35) 04/30/19 07:17 Alkaline Phosphatase 55 U/L (38-126) 04/30/19 07:17 Ammonia < 8.7 umol/L (9-33) L 04/29/19 18:54 Creatine Kinase 64 U/L (30-135) 04/30/19 07:17 CK-MB (CK-2) 1.19 ng/mL (<4.55) 04/30/19 07:17 Troponin I < 0.012 ng/mL 04/30/19 07:17 NT-Pro-B Natriuret Pep 197 pg/mL (<125) H 04/29/19 18:54 Total Protein 6.8 g/dL (6.3-8.2) 04/30/19 07:17 Albumin 3.6 g/dL (3.5-5.0) 04/30/19 07:17 Triglycerides 79 mg/dL (<150) 04/30/19 07:17 Cholesterol 111.16 mg/dL (0-200) 04/30/19 07:17 LDL Cholesterol Direct 62 mg/dL (<100) 04/30/19 07:17 VLDL Cholesterol 16.0 mg/dL (10-31) 04/30/19 07:17 HDL Cholesterol 38 mg/dL (>40) L 04/30/19 07:17 Amylase 38 U/L (30-110) 04/29/19 18:54 Lipase 38.3 U/L (23-300) 04/29/19 18:54 Vitamin B12 357.0 pg/mL (239-931) 04/29/19 18:54 Folate 16.00 ng/mL (>2.76) 04/29/19 18:54 TSH 2.27 uIU/mL (0.47-4.68) 04/29/19 18:54 Free T4 1.00 ng/dL (0.78-2.19) 04/29/19 18:54 Urine Color YELLOW 04/30/19 00:35 Urine Appearance SLIGHTLY-CLOUDY 04/30/19 00:35 Urine pH 5.0 (5.0-9.0) 04/30/19 00:35 Ur Specific [place] 1.020 04/30/19 00:35 Urine Protein 30 mg/dL (NEGATIVE) H 04/30/19 00:35 Urine Glucose (UA) >=500 mg/dL (NEGATIVE) H 04/30/19 00:35 Urine Ketones NEGATIVE mg/dL (NEGATIVE) 04/30/19 00:35 Urine Blood LARGE (NEGATIVE) H 04/30/19 00:35 Urine Nitrite NEGATIVE (NEGATIVE) 04/30/19 00:35 Urine Bilirubin NEGATIVE (NEGATIVE) 04/30/19 00:35 Urine Urobilinogen NEGATIVE mg/dL (<2.0) 04/30/19 00:35 Ur Leukocyte Esterase SMALL (NEGATIVE) H 04/30/19 00:35 Urine WBC (Auto) 36 /HPF 04/30/19 00:35 Urine RBC (Auto) >182 /HPF 04/30/19 00:35 Squamous Epi Cells Auto 6 /HPF 04/30/19 00:35 Urine Mucus (Auto) RARE /LPF 04/30/19 00:35 Urine Ascorbic Acid NEGATIVE (NEGATIVE) 04/30/19 00:35 POC Stool Occult Blood NEGATIVE (NEGATIVE) 04/29/19 11:01 Urine Opiates Screen NEGATIVE 04/30/19 00:35 Urine Methadone Screen NEGATIVE 04/30/19 00:35 Ur Barbiturates Screen NEGATIVE 04/30/19 00:35 Ur Phencyclidine Scrn NEGATIVE 04/30/19 00:35 Ur Amphetamines Screen NEGATIVE 04/30/19 00:35 U Benzodiazepines Scrn NEGATIVE 04/30/19 00:35 Urine Cocaine Screen NEGATIVE 04/30/19 00:35 U Marijuana (THC) Screen NEGATIVE 04/30/19 00:35 Slides for Path Review PATHOLOGIST REVIEWED 04/29/19 10:09 Blood Type O POSITIVE 04/29/19 10:09 Antibody Screen NEGATIVE 04/29/19 10:09 Crossmatch See Detail 04/29/19 10:09 04/29/19 04/29/19 04/30/19 18:54 18:54 00:47 CK-MB (CK-2) 1.00 1.05 Troponin I < 0.012 < 0.012 NT-Pro-B Natriuret Pep 197 H 04/30/19 07:17 CK-MB (CK-2) 1.19 Troponin I < 0.012 NT-Pro-B Natriuret Pep Stroke Is this a Stroke Patient?: No Acute Heart Failure - Is this a Heart Failure Patient?: No
[2019-05-06] MEDS ORDERED: EXENATIDE 5 MCG/0.02 ML SUBCUT SCH (01:44)
== END 2019-04-30 19:30 | disposition home or self-care (01) | DRG 812 ==
LOC: ER 08:26 → EH 12:23 → 5 19:25
PROVIDERS: ADMIT Internal Medicine; ATTEND Internal Medicine
PROC: 30233N1 Transfusion of Nonautologous Red Blood Cells into Peripheral Vein, Percutaneous Approach (ICD-10-PCS; principal; 2019-04-29)
PROC: 30233N1 Transfusion of Nonautologous Red Blood Cells into Peripheral Vein, Percutaneous Approach (ICD-10-PCS; 2019-04-30)
DX: D50.0 Iron deficiency anemia secondary to blood loss (chronic) (principal); E11.42 Type 2 diabetes mellitus with diabetic polyneuropathy; E78.5 Hyperlipidemia, unspecified; I10 Essential (primary) hypertension; F32.9 Major depressive disorder, single episode, unspecified; K59.09 Other constipation; Z98.84 Bariatric surgery status; Z79.4 Long term (current) use of insulin; Z87.891 Personal history of nicotine dependence
CPT/HCPCS: 36415; 36430; 80053; 80061; 80307; 81001; 82140; 82150; 82550; 82553; 82607; 82728; 82746; 82803; 82962; 83036; 83540; 83550; 83690; 83735; 83880; 84100; 84439; 84443; 84484; 85025; 85045; 85610; 86850; 86900; 86901; 86920; 87040; 87086; 87088; 87186; 99284; J1815; J3490; J7050; J7120; P9016

== ENCOUNTER 2019-07-26 10:09 | Outpatient (CLI) | payer MEDICARE, MEDICAID ==
[2019-07-26 10:49] LABS: HEMATOCRIT 21.3 % (36.0-47.0); MEAN CORPUSCULAR HEMOGLOBIN 17.7 pg (27.0-33.4); MEAN CORPUSCULAR HGB CONC 28.8 g/dL (32.0-36.0); PLATELET COUNT 288 10^3/uL (150-450); RED BLOOD COUNT 3.46 10^6/uL (3.72-5.28); RED CELL DISTRIBUTION WIDTH 20.6 % (11.5-14.0); WHITE BLOOD COUNT 6.8 10^3/uL (4.0-10.5)
[2019-07-26 11:20] LABS: MEAN CORPUSCULAR VOLUME 61 fl (80-97)
[2019-07-26 11:23] LABS: HEMOGLOBIN 6.1 g/dL (12.0-15.5)
[2019-07-27 02:57] VITALS: BP 172/84
[2019-07-30 13:29] LABS: PATH REVIEW PATHOLOGIST REVIEWED
== END 2019-07-27 03:00 | disposition home or self-care (01) ==
LOC: II 10:09 → EDSTATUS 10:09 → 4S 10:10 → II 07-27 03:00
PROVIDERS: ATTEND Internal Medicine
DX: D64.9 Anemia, unspecified (principal)
CPT/HCPCS: 86900; 86901; 36415; 36430; 86850; 86920; P9016

== ENCOUNTER → 2019-08-01 | Outpatient (CLI) | payer MEDICAID, MEDICARE ==
--- NOTE | 2019-08-01 13:18 | RADIOLOGY REPORT (SQ) ---
EXAM DESCRIPTION: MRI CERVICAL SPINE WITHOUT IMAGES COMPLETED DATE/TIME: 08/01/2019 10:33 am REASON FOR STUDY: CERVICAL RADICULOPATHY (M54.12) M54.12 RADICULOPATHY, CERVICAL REGION COMPARISON: MRI cervical spine 02/22/2016 TECHNIQUE: Sagittal and Axial imaging includes T1, T2, STIR and gradient echo sequences. LIMITATIONS: None. FINDINGS: ALIGNMENT: Straightening of cervical lordosis VERTEBRAE: Intact. BONE MARROW: Normal. No marrow replacement or reactive changes. DISCS: Diffuse decreased T2 weighted intervertebral disc signal. HARDWARE: None in the spine. CORD AND BASE OF BRAIN: There is flattening of the cervical cord from cervical disc herniations at C4 -5 and C6-7 with mild cord flattening. There is mild increased intrinsic signal in the cervical cord at the C4-5 and C6-7 level likely edema or myelomalacia. This finding is new compared to 2016. SOFT TISSUES: No soft tissue masses. 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 C1-C2: No significant spinal stenosis. C2-C3: Ossification of posterior longitudinal ligament. Posterior disc bulge and bony spurring effac es the ventral thecal sac and abuts the ventral cord without cord flattening or abnormal intrinsic co rd signal. Mild central canal stenosis. Mild bilateral foraminal narrowing. C3-C4: Ossification of the posterior longitudinal ligament. Small posterior disc bulge effaces the v entral thecal sac and abuts the ventral cord without cord flattening or abnormal intrinsic cord signa l. There is moderate right, mild left foraminal narrowing from facet and uncovertebral hypertrophy. C4-C5: Moderate central canal stenosis results from broad diffuse posterior disc bulging with a centr al disc herniation. This flattens the ventral cord with mild increased intrinsic cord signal worriso me for edema or myelomalacia, best shown on sagittal image 7 and axial image 12. Mild bilateral fora yoana narrowing from facet and uncovertebral hypertrophy. These findings are new compared to 2016. C5-C6: Ossification of posterior longitudinal ligament, small left paracentral disc protrusion/ herni ation effaces the ventral thecal sac and abuts the ventral cord with minimal cord flattening. No abn ormal intrinsic cord signal. Mild central canal narrowing. Mild bilateral foraminal narrowing. Thi s is new compared to 2016. C6-C7: Ossification of posterior longitudinal ligament, moderate to large chronic appearing left para central disc herniation flattens the leftward cord with minimal increased intrinsic cord signal from edema or myelomalacia. Moderate central canal narrowing. These findings are progressive since 2016. Moderate bilateral foraminal narrowing left greater than right. C7-T1: Mild right foraminal narrowing from facet and uncovertebral hypertrophy. No significant centr al canal narrowing or left foraminal stenosis UPPER THORACIC: Incompletely imaged. No significant spinal stenosis or exit foraminal stenosis. OTHER: No other significant finding. IMPRESSION: Mild cervical spinal cord compression with cord edema or myelomalacia at the C4-5 and C6 -7 levels. TECHNICAL DOCUMENTATION: JOB ID: [id number] 2010 [employer]- All Rights Reserved Reading location - IP/workstation name: [email or web address]
== END ==
LOC: RAD 09:44
PROVIDERS: ATTEND Internal Medicine
DX: M50.123 Cervical disc disorder at C6-C7 level with radiculopathy (principal)
CPT/HCPCS: 72141

== ENCOUNTER 2019-10-29 14:22 | Outpatient (CLI) | payer MEDICARE, MEDICAID ==
[2019-10-29 17:36] LABS: HEMATOCRIT 23.3 % (36.0-47.0); MEAN CORPUSCULAR HGB CONC 28.4 g/dL (32.0-36.0); MEAN CORPUSCULAR VOLUME 63 fl (80-97); PLATELET COUNT 334 10^3/uL (150-450); RED BLOOD COUNT 3.68 10^6/uL (3.72-5.28); RED CELL DISTRIBUTION WIDTH 20.4 % (11.5-14.0); WHITE BLOOD COUNT 10.7 10^3/uL (4.0-10.5)
[2019-10-29 18:23] LABS: HEMOGLOBIN 6.6 g/dL (12.0-15.5)
[2019-10-29] MEDS ORDERED: ACETAMINOPHEN 325 MG TABLET PO PRN (20:15)
[2019-10-29] MEDS ORDERED: DIPHENHYDRAMINE HCL 25 MG CAPSULE PO PRN (20:15)
[2019-10-30 05:33] VITALS: BP 170/69
[2019-10-30 09:00] LABS: HEMATOCRIT 31.6 % (36.0-47.0); MEAN CORPUSCULAR HEMOGLOBIN 20.8 pg (27.0-33.4); MEAN CORPUSCULAR HGB CONC 30.1 g/dL (32.0-36.0); PLATELET COUNT 275 10^3/uL (150-450); RED BLOOD COUNT 4.57 10^6/uL (3.72-5.28); RED CELL DISTRIBUTION WIDTH 25.4 % (11.5-14.0); WHITE BLOOD COUNT 8.2 10^3/uL (4.0-10.5)
[2019-10-30 09:25] LABS: HEMOGLOBIN 9.5 g/dL (12.0-15.5)
[2019-10-30 09:26] LABS: MEAN CORPUSCULAR VOLUME 69 fl (80-97)
== END 2019-10-30 08:41 | disposition home or self-care (01) ==
LOC: II 14:22 → 5TH 14:23 → 4N 14:29 → II 10-30 08:41
PROVIDERS: ATTEND Internal Medicine
DX: D50.0 Iron deficiency anemia secondary to blood loss (chronic) (principal)
CPT/HCPCS: 86900; 86901; 36415; 36430; 86850; 85027; 86920; P9016